=== PATIENT | female | born 1970 | race Caucasian/White ===

== ENCOUNTER 2017-08-30 13:40 | Emergency (ER) | payer OTHER ==
[~2017-08-30] VITALS: Ht 157.5 cm; Wt 75.4 kg
[2017-08-30 14:39] LABS: HEMATOCRIT 41.2 % (37.0-47.0); HEMOGLOBIN 13.5 g/dl (12.0-16.0); IMMATURE GRANULOCYTES 0.3 % (0.0-1.0); MEAN CELL VOLUME 90.2 fL CALC (80.0-100.0); MEAN CORPUSCULAR HGB 29.5 pG CALC (26.0-32.0); MEAN CORPUSCULAR HGB CONC 32.8 g/L CALC (32.0-36.0); NEUT# 6.56 thou/uL (2.00-7.15); RED BLOOD COUNT 4.57 mill/uL (4.20-5.60); RED CELL DISTRI WIDTH 13.5 % (11.5-15.5)
[2017-08-30 14:48] LABS: ANION GAP 19 (6-22 (CALC)); BUN 17 mg/dL (7-17); BUN/CREATININE RATIO 18 (12-20 (CALC)); CALCIUM 10.8 mg/dL (8.4-10.2); CALCULATED LDLCHOLESTEROL 84 mg/dL (62-129 (CALC)); CARBON DIOXIDE 27 mmol/l (22-30); CHLORIDE 103 mmol/l (95-108); CHOLESTEROL HDL RATIO 3.3 (<4.4 (CALC)); GFR 59 ML/MIN (>=60 (CALC)); GFR FOR AFR.AMER. > 60 ML/MIN (>=60 (CALC)); GLUCOSE 95 mg/dL (65-105); HDL CHOLESTEROL 58 mg/dL (>=40); POTASSIUM 3.8 mmol/l (3.5-5.1); SODIUM 145 mmol/l (137-146); TOTAL CHOLESTEROL 190 mg/dl (0-199); TOTAL TRIGLYCERIDES 241 mg/dl (30-149); VLDL CHOLESTROL 48 mg/dl (1-41 (CALC))
[2017-08-30 15:19] LABS: TSH, 3RD GENERATION 2.41 uIU/mL (0.47 - 4.68)
[2017-08-30] MEDS ORDERED: LISINOPRIL10 MG PO (16:29)
[2017-08-30 16:40] VITALS: BP 166/83
== END 2017-08-30 16:46 | disposition left against medical advice (07) | DRG 312 ==
LOC: ED 13:40
PROVIDERS: Family Medicine
DX: R55 Syncope and collapse (principal); I10 Essential (primary) hypertension; Z91.19 Patient's noncompliance with other medical treatment and regimen

== ENCOUNTER 2017-12-03 10:23 | Observation (INO) | payer OTHER ==
[~2017-12-03] VITALS: Ht 157.5 cm; Wt 74.0 kg
[~2017-12-03 10:23] MED LIST: LISINOPRIL10 MG PO
[2017-12-03 11:07] LABS: HEMATOCRIT 39.5 % (37.0-47.0); HEMOGLOBIN 12.8 g/dl (12.0-16.0); IMMATURE GRANULOCYTES 0.3 % (0.0-1.0); MEAN CELL VOLUME 89.4 fL CALC (80.0-100.0); MEAN CORPUSCULAR HGB CONC 32.4 g/L CALC (32.0-36.0); NEUT# 5.07 thou/uL (2.00-7.15); RED BLOOD COUNT 4.42 mill/uL (4.20-5.60); RED CELL DISTRI WIDTH 12.8 % (11.5-15.5)
[2017-12-03 11:24] LABS: ANION GAP 20 (6-22 (CALC)); BUN 16 mg/dL (7-17); BUN/CREATININE RATIO 15 (12-20 (CALC)); CARBON DIOXIDE 25 mmol/l (22-30); CHLORIDE 103 mmol/l (95-108); GFR 59 ML/MIN (>=60 (CALC)); GFR FOR AFR.AMER. > 60 ML/MIN (>=60 (CALC)); POTASSIUM 3.8 mmol/l (3.5-5.1); SODIUM 143 mmol/l (137-146)
[2017-12-03 14:00] VITALS: BP 151/87
[2017-12-03 16:18] VITALS: BP 126/82
[2017-12-03 19:05] VITALS: BP 123/85
[2017-12-04 00:05] VITALS: BP 138/85
[2017-12-04 04:05] VITALS: BP 126/75
[2017-12-04 07:11] LABS: CHOLESTEROL HDL RATIO 3.4 (<4.4 (CALC))
[2017-12-04 08:30] VITALS: BP 132/74
[2017-12-04 11:12] VITALS: BP 137/89
[2017-12-04] MEDS ORDERED: LISINOPRIL10 MG PO (12:56)
[2017-12-04] MEDS ORDERED: MECLIZINE25 MG PO (12:57)
[2017-12-04] MEDS ORDERED: NORVASC PO (15:12)
[2017-12-04] MEDS ORDERED: CYCLOBENZAPR10 MG PO (17:08)
[2017-12-04] MEDS ORDERED: IBUPROFEN600 MG PO (17:08)
[2017-12-04] MEDS ORDERED: ZOFRAN ODT4 MG PO (17:09)
== END 2017-12-04 17:20 | disposition home or self-care (01) | DRG 313 ==
LOC: ED 10:23 → ED-I 11:43 → ED 12:56 → MS2 12:57
PROVIDERS: Family Medicine; ADMIT Internal Medicine; ATTEND Internal Medicine
DX: R07.9 Chest pain, unspecified (principal); R42 Dizziness and giddiness; I16.0 Hypertensive urgency; I10 Essential (primary) hypertension; M54.2 Cervicalgia; H55.00 Unspecified nystagmus; Z91.14 Patient's other noncompliance with medication regimen
CPT/HCPCS: G0378

== ENCOUNTER 2018-11-16 11:04 | Emergency (ER) | payer SELFPAY ==
[~2018-11-16] VITALS: Ht 157.5 cm; Wt 70.9 kg
[~2018-11-16 11:04] MED LIST changes: +CYCLOBENZAPR10 MG PO; +IBUPROFEN600 MG PO; +MECLIZINE25 MG PO; +NORVASC PO; +ZOFRAN ODT4 MG PO
[2018-11-16] MEDS ORDERED: FLEXERIL PO (13:03)
[2018-11-16 13:40] VITALS: BP 152/86
[2018-11-16] MEDS ORDERED: TRAMADOL HYDROC50 MG PO (13:43)
== END 2018-11-16 13:40 | disposition home or self-care (01) | DRG 563 ==
LOC: ED 11:04
DX: S39.012A Strain of muscle, fascia and tendon of lower back, initial encounter (principal); M62.830 Muscle spasm of back; I10 Essential (primary) hypertension; X50.3XXA Overexertion from repetitive movements, initial encounter; Y93.89 Activity, other specified